=== PATIENT | female | born 1955 | race Caucasian/White ===

== ENCOUNTER 2016-12-20 16:47 | Emergency (ER) | payer OTHER ==
[2016-12-20 17:02] VITALS: BP 156/83; TEMP 102.4; BMI 25.1
[2016-12-20 17:48] LABS: BASOPHILS # (AUTO) 0.1 K/uL (0-0.2); BASOPHILS % (AUTO) 0.4 % (0.0-3.0); HEMATOCRIT 38.8 % (37.0-47.0); HEMOGLOBIN 13.3 g/dl (12.0-16.0); IMMATURE GRANULOCYTE % (AUTO) 0.3 % (0.0-5.0); LYMPHOCYTES # (AUTO) 1.6 K/uL (0.60-3.4); LYMPHOCYTES % (AUTO) 10.2 (10.0-50.0); MEAN CORPUSCULAR HEMOGLOBIN 29.5 pg (27.0-31.0); MEAN CORPUSCULAR HGB CONC 34.3 (31.8-35.4); MONOCYTES # (AUTO) 2.1 K/uL (0.4-2.0); MONOCYTES % (AUTO) 13.5 (0-10); NEUTROPHILS # (AUTO) 11.7 K/ul (2.0-6.9); NEUTROPHILS % (AUTO) 75.6; PLATELET COUNT 398 10^3/uL (140-440); RED BLOOD COUNT 4.51 10^6/ul (4.20-5.40); WHITE BLOOD COUNT 15.51 K/ul (4.6-10.2)
[2016-12-20 18:04] LABS: BILIRUBIN,URINE 1+ (NEGATIVE); KETONES,URINE Trace (NEGATIVE); LEUKOCYTE ESTERASE ,URINE 2+ (NEGATIVE); NITRITE,URINE Positive (NEGATIVE); PH,URINE 5.5 (5-9); PROTEIN,URINE 3+ (NEGATIVE); URINE, BLOOD 2+ (NEGATIVE)
--- NOTE | 2016-12-20 18:06 | DI ---
EXAM: Chest PA and lateral HISTORY: Cough. COMPARRISON: 04/24/2015. FINDINGS: The heart is normal in size. Pulmonary vascularity is within normal limits. No focal airsp cris opacity or pleural effusion is seen. Mild pectus excavatum is present. There is mild multilevel degenerative changes of the thoracic spine. IMPRESSION: No acute cardiopulmonary findings. Similar pectus excavatum.
[2016-12-20 18:07] LABS: ADD URINE MICROSCOPIC YES
--- NOTE | 2016-12-20 18:15 | CT ---
Exam: CT of the abdomen and pelvis without contrast History: Abdominal pain Technique: [address] of the abdomen and pelvis without intravascular contrast FINDINGS: The lung bases are clear. The liver, gallbladder, pancreas and spleen appear normal. Th ere is a 1.6 cm left adrenal adenoma. The kidneys and collecting system appear normal. The appendi x is not seen. Bowel loops demonstrate normal caliber. No inflamatory change seen in the mesentery o r retroperitoneum. Atherosclerotic calcification of the aorta without aneurysm. Pelvic genitourinary structures appear normal. Pelvic bowel loops are unremarkable. No inflammatory change in the pelvic fat. No acute abnormality of the abdominal or pelvic skeleton. Impression: 1. No inflammatory process, bowel or urinary obstruction is seen. 2. No acute abnormalities of the abdomen or pelvis.
[2016-12-20 18:18] LABS: ALANINE AMINOTRANSFERASE 16 U/L (12-78); ALBUMIN 3.5 g/dL (3.4-5.0); ALKALINE PHOSPHATASE 121 U/L (53-141); AMYLASE 45 U/L (25-115); ANION GAP 16.4; ASPARTATE AMINO TRANSFERASE 12 U/L (15-37); BILIRUBIN,TOTAL 1.09 mg/dL (0.00-1.20); BLOOD UREA NITROGEN 11 mg/dL (7-18); BUN/CREATININE RATIO 11.34; CARBON DIOXIDE 23 mmol/L (23-31); CHLORIDE 101 mmol/L (98-107); CREATINE KINASE 65 U/L; CREATININE 0.97 mg/dL (0.60-1.30); GLUCOSE 113 mg/dL (82-115); LIPASE 9 U/L (8-78); POTASSIUM 3.4 mmol/L (3.5-5.10); SODIUM 137 mmol/L (136-145); TOTAL PROTEIN 7.4 g/dL (5.8-8.1)
[2016-12-20] MEDS ORDERED: ROCEPHIN IM STA (18:19)
[2016-12-20] MEDS ORDERED: LIDOCAINE 1 % AMP 5 ML (SUTURES) IM STA (18:19)
--- NOTE | 2016-12-20 18:23 | ED.PDOC ---
General ED Provider: Dr. OC LEWIS Chief Complaint: Nausea/Vomiting Stated Complaint: n, v Time Seen by Physician: 17:00 Mode of Arrival: Walk-In Information Source: Patient Exam Limitations: No limitations Primary Care Provider: DASHA RENAE Nursing and Triage Documentation Reviewed and Agree: Yes GI Complaint Exam - Vomiting/Diarrhea Complaint/Exam Onset/Duration: 3 days Symptoms Are: Resolved Episodes of Vomiting over last 24 Hours: 7 Episodes of Diarrhea Over Last 24 Hours: 0 Initial Severity: Moderate Current Severity: None Character of Vomiting: Reports: Non-bilious Aggravating: Reports: None Alleviating: Reports: None Surgical Obstruction Risk Factors: Reports: None Related Surgical History: Reports: None Abdominal Findings: Present: None Kussmaul Respirations Present: No Differential Diagnoses: Viral Gastroenteritis, Bacterial Gastroenteritis, UTI Review of Systems - Review Of Systems Constitutional: Reports: Malaise Eyes: Reports: No symptoms Ears, Nose, Mouth, Throat: Reports: No symptoms Respiratory: Reports: No symptoms Cardiac: Reports: No symptoms GI: Reports: Abdominal pain, Vomiting : Reports: No symptoms Musculoskeletal: Reports: No symptoms Skin: Reports: No symptoms Neurological: Reports: No symptoms Endocrine: Reports: No symptoms Hematologic/Lymphatic: Reports: No symptoms All Other Systems: Reviewed and Negative Past Medical History - Past Medical History Previously Healthy: No Endocrine: Reports: None Cardiovascular: Reports: Hypertension Respiratory: Reports: None Hematological: Reports: None Gastrointestinal: Reports: None Genitourinary: Reports: None Neuro/Psych: Reports: Depression Musculoskeletal: Reports: None Cancer: Reports: None Last Menstrual Period: unknown - Surgical History General Surgical History: Reports: Appendectomy, Tonsillectomy - Family History Family History: Reports: Unknown - Social History Smoking Status: Current every day smoker, Heavy tobacco smoker Hx Substance Use: No Alcohol Screening: None Physical Exam - Physical Exam Appearance: Well-appearing, No pain distress, Well-nourished Eyes: HOLLY, EOMI, Conjunctiva clear ENT: Ears normal, Nose normal, Oropharynx normal Respiratory: Airway patent, Breath sounds clear, Breath sounds equal, Respirations nonlabored Cardiovascular: RRR, Pulses normal, No rub, No murmur GI/: Soft, Nontender, No masses, Bowel sounds normal, No Organomegaly Musculoskeletal: Normal strength, ROM intact, No edema, No calf tenderness Skin: Warm, Dry, Normal color Neurological: Sensation intact, Motor intact, Reflexes intact, Cranial nerves intact, Alert, Oriented Psychiatric: Affect appropriate, Mood appropriate Interpretation - Radiology Interpretation Radiology Interpretation By: Radiologist Radiology Results: No acute changes Critical Care Note - Critical Care Note Total Time (mins): 0 Course - Course Hematology/Chemistry: 12/20/16 17:40 Orders, Labs, Meds: Lab Review 12/20/16 12/20/16 17:40 17:56 WBC 15.51 H RBC 4.51 Hgb 13.3 Hct 38.8 MCV 86.0 MCH 29.5 MCHC 34.3 RDW Coeff of Rigoberto 14.2 Plt Count 398 Immature Gran % (Auto) 0.3 Neut % (Auto) 75.6 Lymph % (Auto) 10.2 Mcdonough % (Auto) 13.5 H Eos % (Auto) 0.0 Baso % (Auto) 0.4 Immature Gran # (Auto) 0.0 Neut # 11.7 H Lymph # 1.6 Mcdonough # 2.1 H Eos # 0.0 Baso # 0.1 Lactic Acid 7.1 Urine Color Dark Urine Clarity Slightly Urine pH 5.5 Ur Specific [place] 1.020 Urine Protein 3+ Urine Glucose (UA) Negative Urine Ketones Trace Urine Blood 2+ Urine Nitrite Positive Urine Bilirubin 1+ Urine Urobilinogen 2.0 Ur Leukocyte Esterase 2+ Urine Microscopic WBC Tntc Ur Squamous Epith Cells Not present Orders Category Date Time Status AMYLASE Stat LAB 12/20/16 17:40 Received BLOOD CULTURE Stat LAB 12/20/16 17:40 Received CBC W/ AUTO DIFF Stat LAB 12/20/16 17:40 Completed COMPREHENSIVE METABOLIC PANEL Stat LAB 12/20/16 17:40 Received CREATINE KINASE Stat LAB 12/20/16 17:40 Received LACTIC ACID Stat LAB 12/20/16 17:40 Completed LIPASE Stat LAB 12/20/16 17:40 Received PROCALCITONIN Stat LAB 12/20/16 17:40 Received TROPONIN I Stat LAB 12/20/16 17:40 Received URINALYSIS C & S IF INDICATED Stat LAB 12/20/16 17:56 Completed URINE CULTURE Stat LAB 12/20/16 18:08 Received Ceftriaxone Sodium [Rocephin] MEDS 12/20/16 18:19 Stat 1 gm IM ONCE STA Lidocaine HCl/Pf [Lidocaine 1 % Amp 5 ml (Sutures)] MEDS 12/20/16 18:19 Stat 2.1 ml IM ONCE STA CHEST, 2 VIEWS PA & LAT Stat RADS 12/20/16 17:[address] ABDOMEN/PELVIS WO CONTRAST Stat RADS 12/20/16 17:28 Completed Medications Discontinued Medications Generic Name Dose Route Start Last Admin Trade Name Shelli PRN Reason Stop Dose Admin Ceftriaxone Sodium 1 gm 12/20/16 18:19 Rocephin IM 12/20/16 18:20 ONCE STA Lidocaine HCl 2.1 ml 12/20/16 18:19 Lidocaine 1 % Amp 5 Ml (Sutures) IM 12/20/16 18:20 ONCE STA Vital Signs: Temp Pulse Resp BP Pulse Ox 12/20/16 16:48 102.4 F H 113 H 20 156/83 H 93 L Departure - Departure Time of Disposition: 19:00 Disposition: HOME SELF-CARE Discharge Problem: Nausea, Vomiting Urinary tract infection Qualifiers: Urinary tract infection type: site unspecified Instructions: Urinary Tract Infection in Women (ED), Dysuria (ED) Condition: Good Pt referred to PMD for follow-up: No Additional Instructions: Please call your Family Physician as soon as possible to schedule a follow-up appointment. Allergies/Adverse Reactions: Allergies No Known Allergies Allergy (Verified 12/20/16 16:55) Home Medications: Ambulatory Orders 1 [No Reported Medications] 12/20/16 Disposition Discussed With: Patient, Family
== END 2016-12-20 19:34 | disposition home or self-care (01) ==
LOC: ED 16:47
DX: N39.0 Urinary tract infection, site not specified (principal); R11.2 Nausea with vomiting, unspecified; F17.210 Nicotine dependence, cigarettes, uncomplicated
CPT/HCPCS: 36415; 80053; 81001; 82150; 82550; 83605; 83690; 84145; 84484; 85025; 87040; 87086; 87186; 96372; 99283

== ENCOUNTER 2017-04-24 08:26 | Outpatient (CLI) ==
[2017-04-14 17:49] VITALS: BMI 26.5
[2017-04-24 09:03] LABS: BASOPHILS % (AUTO) 0.3 % (0.0-3.0); EOSINOPHILS % (AUTO) 0.2 % (0.0-7.0); HEMATOCRIT 39.8 % (37.0-47.0); HEMOGLOBIN 13.6 g/dl (12.0-16.0); IMMATURE GRANULOCYTE % (AUTO) 0.5 % (0.0-5.0); LYMPHOCYTES # (AUTO) 1.7 K/uL (0.60-3.4); LYMPHOCYTES % (AUTO) 14.2 (10.0-50.0); MEAN CORPUSCULAR HEMOGLOBIN 29.9 pg (27.0-31.0); MEAN CORPUSCULAR HGB CONC 34.2 (31.8-35.4); MEAN CORPUSCULAR VOLUME 87.5 fl (81.0-99.0); MONOCYTES # (AUTO) 1.2 K/uL (0.4-2.0); MONOCYTES % (AUTO) 9.5 (0-10); NEUTROPHILS # (AUTO) 9.2 K/ul (2.0-6.9); NEUTROPHILS % (AUTO) 75.3; PLATELET COUNT 402 10^3/uL (140-440); RED BLOOD COUNT 4.55 10^6/ul (4.20-5.40); WHITE BLOOD COUNT 12.24 K/ul (4.6-10.2)
[2017-04-24 09:29] LABS: ANION GAP 11.6; BILIRUBIN,TOTAL 0.4 mg/dL (0.00-1.20); BUN/CREATININE RATIO 24.28; CALCIUM 9.2 mg/dL (8.2-10.2); CREATININE 0.7 mg/dL (0.60-1.30); POTASSIUM 3.6 mmol/L (3.5-5.10)
[2017-04-24 09:30] LABS: ALBUMIN 4.2 g/dL (3.4-5.0); ALBUMIN/GLOBULIN RATIO 1.62; CHOL/HDL RATIO 5.2 (4.5-5.5); TOTAL PROTEIN 6.8 g/dL (5.8-8.1)
--- NOTE | 2017-04-24 17:04 | MRI ---
EXAM: MRI lumbar spine without IV contrast. DATE: 24 April 2017. HISTORY: Chronic back pain. TECHNIQUE: Sagittal and axial T1W and T2W sequences of the lumbar spine along with sagittal IR and c oronal T2W sequences were obtained using 1.2 Yenifer magnet. No IV contrast. COMPARISON: CT abdomen/pelvis 20 December 2016. FINDINGS: There are five [id number] lumbar vertebra. Mild rightward curvature lower thoracic a nd upper lumbar spine is noted. No acute lumbar fracture, subluxation, osseous malignancy, or pars i nterarticularis defect is identified. Lumbar vertebra are normal in height. Small anterolateral ost eophytes are observed at several lumbar levels. Chronic Schmorl's nodes are seen at T11, T12, L1, L2 , and L4. Mild/moderate L3-4, mild L4-5, and moderate L5-S1 disc space narrowing is detected. Mild spinous process arthritis is noted. No sacral fracture or stress reaction is apparent. SI joints ar e unremarkable. Conus medullaris terminates at L1-2. Visible spinal cord reveals no syrinx, cord ed silas, myelomalacia, or neoplasm. No retroperitoneal lymphadenopathy, paraspinal mass, or aortic aneurysm is detected. Psoas muscles a re normal. There is mild to moderate bilateral posterior paraspinal muscle atrophy. Right lobe live r measures greater than 15 cm in length. Visible portions of the liver, spleen, adrenal glands and k idneys reveal no definitive neoplasm. No bowel obstruction or malignancy is apparent. Segmental analysis: T11-12: Small posterior disc bulge causes mild central canal stenosis. Mild right and moderate left foraminal stenoses due to facet arthropathy. T12-L1: Small concentric disc bulge, superimposed right paramidline disc protrusion (3.9 mm AP by 7. 5 mm transverse) flattens the cord anteriorly and causes moderate/marked central canal stenosis. The re is minor facet arthropathy and mild ligamentum flavum hypertrophy. Each foramen is patent. L1-2: Moderate concentric disc bulge, superimposed left paracentral disc extrusion (4.7 mm AP by 9 m m transverse x 6 mm behind the L2 superior endplate), mild facet arthropathy, and slight ligamentum f lavum hypertrophy cause mild/moderate central canal stenosis, mild right foraminal stenosis, and mode rate left foraminal stenosis. L2-3: Small concentric disc bulge, mild facet arthropathy, and mild ligamentum flavum hypertrophy ca use mild central canal stenosis and mild to moderate narrowing at the opening to each foramen. L3-4: Large concentric disc bulge, superimposed midline disc extrusion (4.7 mm AP by 10 mm transvers e x 15 mm behind the L3 inferior endplate), moderate facet arthropathy, and moderate ligamentum flavu m hypertrophy cause severe central canal stenosis at the disc space level, marked central stenosis po sterior to the L3 body, and moderate bilateral foraminal stenoses. Each L3 nerve root contacts the di sc bulge near the foramen. L4-5: Small concentric disc bulge, mild facet arthropathy, and mild ligamentum flavum hypertrophy ca use mild central canal stenosis and mild bilateral foraminal stenoses. Left L4 nerve root contacts t he disc bulge near the lateral margin of the foramen. L5-S1: S/P left hemilaminectomy. Small concentric disc bulge, spondylotic ridge at the L5 inferior endplate, and mild facet arthropathy cause mild/moderate right and marked left foraminal stenoses. N o central canal stenosis. IMPRESSIONS: 1. Thoracolumbar mild dextroscoliosis, mild/moderate facet arthropathy, and multilevel DDD. 2. Multilevel central canal stenoses (T12-L1: Moderate/marked. L1-2: Mild/moderate. L2-3: Mild. L 3-4: Severe. L4-5: Mild). 3. Multilevel foraminal stenoses. Both L3 and left L4 nerve roots contact disc bulges near the fora men, and may be sources for pain/radiculopathy. 4. T-L-spine small, chronic Schmorl's nodes. 5. Mild hepatomegaly - etiology uncertain.
[2017-04-25 06:12] LABS: FOLLICLE STIMULATING HORMONE 88.2 mIU/mL (.); LUTEINIZING HORMONE 31.7 mIU/mL (.)
--- NOTE | 2017-04-25 11:59 | MAMMO ---
EXAM: Bilateral digital screening mammogram (2-D and 3-D) History: Screening Comparison: Bilateral mammogram 11/21/2015 Findings: MLO and CC views of bilateral breasts demonstrate scattered fibroglandular breast parenchy ma. CAD was reviewed by the radiologist. Tomosynthesis was performed.. There are no dominant masses , no suspicious microcalcifications and no architectural distortions Impression: Stable negative mammogram. Recommend followup routine screening mammography in 1 year. BIRADS 1
== END 2017-04-24 08:27 | disposition home or self-care (01) ==
LOC: RAD 08:26
PROVIDERS: ATTEND Nurse Practitioner Family
DX: Z12.31 Encounter for screening mammogram for malignant neoplasm of breast (principal); M54.9 Dorsalgia, unspecified; M54.10 Radiculopathy, site unspecified; I10 Essential (primary) hypertension; E78.5 Hyperlipidemia, unspecified; F39 Unspecified mood [affective] disorder; F41.8 Other specified anxiety disorders; R45.4 Irritability and anger; Z78.0 Asymptomatic menopausal state
CPT/HCPCS: 36415; 77067; 80053; 80061; 82672; 83001; 83002; 84443; 85025

== ENCOUNTER 2017-06-13 13:57 | Outpatient (CLI) ==
[2017-04-14 17:49] VITALS: BMI 26.5
[2017-06-13 16:24] LABS: ALBUMIN 3.2 g/dL (3.4-5.0); ALBUMIN/GLOBULIN RATIO 0.91; ANION GAP 12.8; BILIRUBIN,TOTAL 0.32 mg/dL (0.00-1.20); CALCIUM 9.1 mg/dL (8.2-10.2); CHOL/HDL RATIO 3.1 (4.5-5.5); CREATININE 0.75 mg/dL (0.60-1.30); POTASSIUM 3.8 mmol/L (3.5-5.10); TOTAL PROTEIN 6.7 g/dL (5.8-8.1)
== END 2017-06-13 13:58 | disposition home or self-care (01) ==
LOC: LAB 13:57
PROVIDERS: ATTEND Nurse Practitioner Family
DX: E78.5 Hyperlipidemia, unspecified (principal); R94.6 Abnormal results of thyroid function studies
CPT/HCPCS: 36415; 80053; 80061; 84439; 84443

== ENCOUNTER 2017-07-09 08:37 | Outpatient (CLI) ==
[2017-04-14 17:49] VITALS: BMI 26.5
== END 2017-07-09 08:38 | disposition home or self-care (01) ==
LOC: LAB 08:37
PROVIDERS: ATTEND Nurse Practitioner Family
DX: R94.6 Abnormal results of thyroid function studies (principal)
CPT/HCPCS: 36415; 84439

== ENCOUNTER 2017-11-10 09:52 | Outpatient (CLI) ==
[2017-04-14 17:49] VITALS: BMI 26.5
== END 2017-11-10 09:53 | disposition home or self-care (01) ==
LOC: LAB 09:52
PROVIDERS: ATTEND Nurse Practitioner Family
DX: E05.90 Thyrotoxicosis, unspecified without thyrotoxic crisis or storm (principal); E78.5 Hyperlipidemia, unspecified; I10 Essential (primary) hypertension; Z72.0 Tobacco use
CPT/HCPCS: 36415; 80053; 80061; 84443; 85025